=== PATIENT | male | born 1995 | race Caucasian/White ===

== ENCOUNTER 2023-12-03 21:14 | Emergency (ER) | payer OTHER ==
[~2023-12-03] VITALS: Ht 170.2 cm; Wt 68.0 kg
[2023-12-03] MEDS ORDERED: BACITRACIN ZINC OINT 15 GM TUBE ONE (21:51)
[2023-12-03] MEDS ORDERED: TDAP DIPH,PERTUSS,TET VAC/PF 0.5 ML DISP.SYRIN IM ONE (21:52)
[2023-12-03] MEDS: BACITRACIN ZINC OINT 15 GM TUBE TOP STA (21:53)
[2023-12-03] MEDS: TDAP DIPH,PERTUSS,TET VAC/PF 0.5 ML DISP.SYRIN IM ONE (22:11)
[2023-12-03 22:18] VITALS: BP 106/66; O2SAT 99
== END 2023-12-03 22:12 | disposition home or self-care (01) ==
LOC: ER 21:24
DX: S61.012A Laceration without foreign body of left thumb without damage to nail, initial encounter (principal); F17.210 Nicotine dependence, cigarettes, uncomplicated; W26.8XXA Contact with other sharp object(s), not elsewhere classified, initial encounter; Y93.89 Activity, other specified; Y92.89 Other specified places as the place of occurrence of the external cause; Y99.8 Other external cause status
CPT/HCPCS: 90715; A4606; A4663